=== PATIENT | female | born 1945 | race Two or more races ===

== ENCOUNTER 2025-04-10 08:09 | Day surgery (SDC) | payer MEDICARE, OTHER ==
[2025-04-10] VITALS (7 sets, daily range): BP systolic 113–166; BP diastolic 65–81
[~2025-04-10] VITALS: Ht 160 cm; Wt 71.8 kg
[~2025-04-10 08:09] MED LIST: ACET500 PO; ALBU2.5V5 INH; ALBU90OI INH; ALEN70 PO; Aspir 8181 MG PO; DILTIAZEM 24HR300 MG PO; EPIPEN0.3 MG/0.3 IM; EUTHYROX50 MCG PO; FERSU300 PO; FLUT1DIS5 INH; IPRAT-ALBUT 0.5-3 ML INH; Isosorbide Mono30 MG PO; LOPE2C PO; MONT10T PO; MULTI-VITAMIN1 EAC2 PO; NITR.4SL SL; SPIRIVA RESPIMAT4 G3 INH; TELMISARTAN-HC1 EAC5 PO; ZYRTEC10 M2 PO
[2025-04-10] MEDS ORDERED: CeFAZolin Sodium 2,000 MG in NS 100 ML IV SCH (08:30)
--- NOTE | 2025-04-10 09:17 | NUR ---
Ambulatory in Day Surgery WITH STEADY GAIT. BELONGINGS PLACED UNDER GURN. GLASSES PLACED IN PACU WITH PT HEARING AID ASSISTANT THEM. OTHER BELONGINGS PLACED UNDER GURN. WARM BLANKETS PROVIDED CALL LIGHT IN REACH.
[2025-04-10] MEDS ORDERED: Bupivacaine 0.5% HCl 5 MG/ML 30MLVIAL ONE (10:15)
--- NOTE | 2025-04-10 10:17 | NUR ---
PT UPDATED ON DELAY IN ROOM DUE TO PREVIOUS CASE RUNNING LATE. WARM BLANKET PROVIDED, PT AMBULATED TO RESTROOM INDEPENDENTLY. CALL LIGHT IN REACH.
[2025-04-10] MEDS ORDERED: FentaNYL Citrate 50 MCG/ML 2 ML Injection ONE (10:19)
[2025-04-10] MEDS ORDERED: Glycopyrrolate 0.2 MG/ML 5ML VIAL ONE (10:40)
[2025-04-10] MEDS ORDERED: Ondansetron HCl 2 MG / ML 2ML Vial ONE (10:42)
[2025-04-10] MEDS ORDERED: Dexamethasone Sod Phos 10 MG/ML 1ML VIAL ONE (10:42)
[2025-04-10] MEDS ORDERED: Phenylephrine HCl 100 MCG/ML-NS 10MLSYR (1MG/10ML) ONE (10:59)
[2025-04-10] MEDS ORDERED: ePHEDrine Sulfate 50 MG/ML 1ML Injection ONE (11:22)
[2025-04-10] MEDS ORDERED: Albuterol 2.5 MG/3 ML VIAL ONE (11:43)
[2025-04-10] MEDS ORDERED: HYDROcodone 5-APAP 325 TAB PO PRN (12:05)
[2025-04-10] MEDS ORDERED: FentaNYL Citrate 50 MCG/ML 2 ML Injection IV PRN ×2 (12:20)
[2025-04-10] MEDS ORDERED: Albuterol 2.5 MG/3 ML VIAL INH PRN (12:20)
--- NOTE | 2025-04-10 12:52 | NUR ---
DISCHARGE NOTE PT A&OX4, BREATHING RA (SATS IN 88-93%, PT STATES THIS IS BASELINE AND SHE USES 2LO2 IF NEEDED AND HAS SOME IN THE CAR, NO SUPPLEMENTAL O2 NEEDED IN STEP). PT BREATHING EVENLY AND UNLABORED. BREAST BINDER IN PLACE. PT HAS NO PAIN AND REFUSES PO PAIN MEDICATION AND SNACK BUT HAS BEEN TOLERATING WATER IN STEP. Patient up to Ambulate independently. Gait steady. Discharge instructions reviewed with patient. Patient verbalizes understanding. Copy given to patient to take home. Dressing to procedure site clean, dry, intact with no visible drainage, swelling, erythema or bruising noted. Discharged via wheelchair to private car for ride home.
== END 2025-04-10 12:45 | disposition home or self-care (01) ==
LOC: ORSCMMR 08:09 → ORD 09:30 → ORSCMMR 09:30
PROVIDERS: Surgery
PROC: 0HBT0ZZ Excision of Right Breast, Open Approach (ICD-10-PCS; principal; 2025-04-10 09:30)
DX: D05.11 Intraductal carcinoma in situ of right breast (principal); Z17.0 Estrogen receptor positive status [ER+]; Z80.3 Family history of malignant neoplasm of breast; I25.10 Atherosclerotic heart disease of native coronary artery without angina pectoris; I10 Essential (primary) hypertension; E03.9 Hypothyroidism, unspecified; J44.89 Other specified chronic obstructive pulmonary disease; Z79.82 Long term (current) use of aspirin; Z79.899 Other long term (current) drug therapy; Z87.891 Personal history of nicotine dependence
CPT/HCPCS: 88307; J0690; J1100; J2371; J2405; J2704; J3010; J7120